=== PATIENT | female | born 1935 | race Caucasian/White ===

== ENCOUNTER 2022-04-28 19:49 | Inpatient (IN) | payer MEDICARE ==
[~2022-04-28] VITALS: Ht 160 cm; Wt 56.7 kg
[2022-04-29] MEDS ORDERED: MAG HYDROX/AL HYDROX/SIMETH 30 ML UDC PO PRN (18:00)
[2022-04-29] MEDS ORDERED: BLOOD SUGAR DIAGNOSTIC 1 EACH STRIP IN ONE (18:00)
[2022-04-29] MEDS ORDERED: ACETAMINOPHEN 325 MG TABLET PO PRN (18:00)
[2022-04-29] MEDS ORDERED: MAGNESIUM HYDROXIDE 30 ML UDC PO PRN (18:00)
[2022-04-29 18:13] VITALS: BP 127/69
[2022-04-29] MEDS ORDERED: PRAM0.253 PO (18:28)
[2022-04-29] MEDS ORDERED: QUET100T PO (18:28)
[2022-04-29] MEDS ORDERED: PANT40TA49 PO (18:28)
[2022-04-29] MEDS ORDERED: METH5TAB4 PO (18:28)
[2022-04-29] MEDS ORDERED: SERT100T PO (18:28)
[2022-04-29] MEDS ORDERED: CARB1TAB21 PO ×2 (18:28)
[2022-04-29] MEDS ORDERED: DONE10TA11 PO (18:28)
[2022-04-29] MEDS ORDERED: CLON1TAB12 PO (18:28)
[2022-04-29] MEDS ORDERED: GABA-532 PO (18:28)
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
--- NOTE | 2022-04-29 19:52 | NUR ---
RN NOTES: REFUSED SKIN ASSESSMENT PT. REFUSED SKIN ASSESSMENT DUE TO UNCOOPERTIVE, AGGRESSIVE, NON REDIRECTABLE, ENCOURAGED X 3 PT. STRONGLY REFUSED, PER PT. STATED MY SKIN IS FINE.
[2022-04-29 20:00] VITALS: BP 133/84
[2022-04-29] MEDS: GABAPENTIN 100 MG CAPSULE PO SCH (21:16)
[2022-04-29] MEDS: DONEPEZIL 5 MG TABLET PO SCH (21:16)
[2022-04-29] MEDS: PRAMIPEXOLE DI-HCL 0.25 MG TABLET PO SCH (21:19)
[2022-04-30 08:00] VITALS: BP 104/71
[2022-04-30] MEDS: PANTOPRAZOLE 40 MG TABLET.DR PO SCH (08:29)
[2022-04-30] MEDS: CARBIDOPA/LEVODOPA 25/100 MG 1 UDTAB PO SCH ×3 (08:30→17:14)
[2022-04-30] MEDS: Z GUARD REMEDY 4 OZ OINT TP SCH (08:30)
[2022-04-30 09:06] LABS: CREATININE 0.8 mg/dL (0.6-1.3)
[2022-04-30 09:08] LABS: ALBUMIN 4.5 g/dL (3.4-5.0); BILIRUBIN,TOTAL 0.7 mg/dL (0.2-1.0); CALCIUM, SERUM 9.7 mg/dL (8.5-10.1); CREATININE 0.8 mg/dL (0.6-1.3); POTASSIUM 4.1 mmol/L (3.5-5.1); TOTAL PROTEIN, SERUM 7.9 g/dL (6.4-8.2)
[2022-04-30 09:10] LABS: CHOLESTEROL 322 mg/dL (<200); HDL CHOLESTEROL 106 mg/dL (40-60); LDL 195 mg/dL (0-99); TRIGLYCERIDES 91 mg/dL (30-150)
[2022-04-30] MEDS: clonazePAM 0.5 MG TABLET PO PRN (15:35)
--- NOTE | 2022-04-30 15:39 | NUR ---
RN-NOTES NOTED PATIENT WITH CONTINUOS TALKING TO SELF, VERY ANXIOUS STATED" I DON'T WANT TO STAY HERE ,I NEED TO GO HOME" REDIRECTED AND REASSURED PATIENT. KLONOPIN 0.25MG P.O GIVEN PRN ORDER. WILL CONT. MONITORING FOR SAFETY AND BEHAVIOR.,
[2022-04-30 16:00] VITALS: BP 160/86
--- NOTE | 2022-04-30 16:40 | NUR ---
RN-NOTES PATIENT STILL IN THE HALLWAY UP IN THE TY CHAIR ,CALM,NO ACUTE DISTRESS NOTED.
[2022-04-30] MEDS: risperiDONE 1 MG TABLET PO SCH (17:14)
--- NOTE | 2022-04-30 18:18 | NUR ---
RN-NOTES PATIENT IN THE HALLWAY UP IN THE TY CHAIR A/O X1-2 GUARDED,NO ACUTE DISTRESS.COMPLIANT WITH MEDICATIONS.NOTED PATIENT WITH EPISODE OF YELLING AND SCREAMING. NEEDS FREQUENT REDIRECTIONS ,PRN MEDICATION GIVEN. NEEDS ASSIST WITH ADL'S. ALL NEEDS ATTENDED AND ANTICIPATED. WILL CONT. MONITORING FOR SAFETY AND BEHAVIOR. WILL ENDORSE TO INCOMING NURSE FOR CONTINUITY OF CARE.
[2022-04-30 20:00] VITALS: BP 154/77
[2022-04-30] MEDS: PRAMIPEXOLE DI-HCL 0.25 MG TABLET PO SCH (22:13)
[2022-04-30] MEDS: DONEPEZIL 5 MG TABLET PO SCH (22:13)
[2022-04-30] MEDS: SIMVASTATIN 10 MG TABLET PO SCH (22:14)
[2022-04-30] MEDS: GABAPENTIN 100 MG CAPSULE PO SCH (22:14)
[2022-04-30] MEDS: DIVALPROEX SODIUM 125 MG CAP.SPRINK PO SCH (22:14)
--- NOTE | 2022-05-01 07:25 | NUR ---
rn note received pt in jenise chair in [facility].pt a/o x1-2. no pain/discomfort noted at this time
[2022-05-01 08:00] VITALS: BP 121/86
[2022-05-01] MEDS: CARBIDOPA/LEVODOPA 25/100 MG 1 UDTAB PO SCH ×3 (09:44→18:01)
[2022-05-01] MEDS: PANTOPRAZOLE 40 MG TABLET.DR PO SCH (09:44)
[2022-05-01] MEDS: DIVALPROEX SODIUM 125 MG CAP.SPRINK PO SCH ×2 (09:44→21:13)
[2022-05-01] MEDS: Z GUARD REMEDY 4 OZ OINT TP SCH (09:45)
[2022-05-01] MEDS: risperiDONE 1 MG TABLET PO SCH ×2 (09:45→17:44)
--- NOTE | 2022-05-01 11:13 | NUR ---
NURSE NOTE: PT AGITATED. CLONAZEPAM PO ADMIN ORDERED. PT JESSICA WELL. WILL CONT TO MONITOR.
[2022-05-01] MEDS: clonazePAM 0.5 MG TABLET PO PRN ×2 (11:16→22:25)
--- NOTE | 2022-05-01 12:00 | NUR ---
NURSE NOTE: TECH UP TO DO DOPPLER BILAT LEG, ASKED PT IF SHE COULD STAY STILL. PT CONFUSED AND ANSWERED NO. TECH LEFT AND DC'D ORDER.
--- NOTE | 2022-05-01 12:13 | NUR ---
NURSE NOTE: PT CALMER AT THIS TIME BUT OCC STILL YELLING OUT. CLONAZEPAM EFFECTIVE AT THIS TIME. WILL CONT TO MONITOR.
[2022-05-01 16:00] VITALS: BP 131/88
--- NOTE | 2022-05-01 20:00 | NUR ---
RN-NOTES PATIENT IN THE HALLWAY UP IN THE TY CHAIR A/O X1-2 GUARDED,NO ACUTE DISTRESS. NOTED PATIENT WITH EPISODES OF TALKING WITH PEOPLE WHO ARE NOT THERE AND TO SELF. NEEDS FREQUENT REDIRECTIONS ,NEEDS ASSIST WITH ADL'S. ALL NEEDS ATTENDED AND ANTICIPATED. WILL CONT. MONITORING FOR SAFETY AND BEHAVIOR. PO FLUIDS OFFERED AND TAKEN WELL.
[2022-05-01 20:33] VITALS: BP 161/71
[2022-05-01] MEDS: DONEPEZIL 5 MG TABLET PO SCH (21:13)
[2022-05-01] MEDS: GABAPENTIN 100 MG CAPSULE PO SCH (21:14)
[2022-05-01] MEDS: SIMVASTATIN 10 MG TABLET PO SCH (21:14)
[2022-05-01] MEDS: PRAMIPEXOLE DI-HCL 0.25 MG TABLET PO SCH (21:17)
--- NOTE | 2022-05-01 22:25 | NUR ---
RN-NOTES PATIENT IN THE HALLWAY UP IN THE TY CHAIR A/O X1-2 GUARDED . CONTINUE TO WITH EPISODES OF TALKING WITH PEOPLE WHO ARE NOT THERE. CLONAZEPAM GIVEN PO FOR ANXIETY PRN MEDICATION. PO FLUIDS GIVEN. OFFERED SNACKS BUT DECLINED. NEEDS ASSIST WITH ADL'S. CONTINUITY OF CARE. DENIES HI, SI.
[2022-05-01] MEDS: TEMAZEPAM 7.5 MG CAPSULE PO PRN (23:33)
--- NOTE | 2022-05-01 23:33 | NUR ---
ALERT TO NAME, HAS EPISODES OF INABILITY TO GO TO SLEEP, CONTINUE TO TALK TO SELF AND PEOPLE WHO ARE NOT THERE. DENIES SI, HI, PAIN OR DISCOMFORT. PO FLUID GIVEN AND TAKEN ONLY IN SMALL AMOUNTS. DECLINED SNACKS. RESTORIL GIVEN ORDERED. CONTINUE TO BE UP IN TY-CHAIR. KEPT CLEAN AND COMFORTABLE. DENIES PAIN OR DISCOMFORT.
--- NOTE | 2022-05-02 06:34 | NUR ---
AT THIS TIME IS ASLEEP IN BED, UNLABORED BREATHING. BILATERAL HALF SIDE RAILS UP X2. BED IN LOW POSITION, LOCKED, EXIT ALARM ON. WENT TO SLEEP AT 4AM. COMPLIANT WITH ALL MEDICATIONS. KEPT CLEAN AND DRY. PO FLUIDS SNACKS GIVEN WHILE AWAKE. SAFEY AND FALL PRECAUTIONS MAINTAINED AT ALL TIMES.
[2022-05-02 08:00] VITALS: BP 132/64
--- NOTE | 2022-05-02 08:55 | NUR ---
Treatment Plan: Pt unable to sign treatment plan. Pt was very confused.
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
--- NOTE | 2022-05-02 08:55 | NUR ---
ADRIENNE Initial Discharge Plan: Per records, pt currently resides at home located at [address] [place] [address]; ([phone]). ADRIENNE will contact pt's Franki ([phone], ) to gather collateral. ADRIENNE will work with the MD, family, and treatment team to help coordinate appropriate treatment.
[2022-05-02] MEDS: clonazePAM 0.5 MG TABLET PO PRN (09:19)
[2022-05-02] MEDS: CARBIDOPA/LEVODOPA 25/100 MG 1 UDTAB PO SCH ×4 (09:19→17:42)
[2022-05-02] MEDS: risperiDONE 1 MG TABLET PO SCH ×2 (09:20→17:00)
[2022-05-02] MEDS: DIVALPROEX SODIUM 125 MG CAP.SPRINK PO SCH ×2 (09:20→21:00)
[2022-05-02] MEDS: PANTOPRAZOLE 40 MG TABLET.DR PO SCH (09:20)
[2022-05-02] MEDS: Z GUARD REMEDY 4 OZ OINT TP SCH (09:48)
[2022-05-02] MEDS ORDERED: LORAZEPAM INJ 2 MG/ML VIAL IM STA (10:26)
[2022-05-02] MEDS ORDERED: OLANZAPINE 10 MG VIAL IM ONE (10:30)
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
--- NOTE | 2022-05-02 11:36 | NUR ---
ADRIENNE Family Contact: SW spoke with patient's Franki ([phone]) and discussed treatment/discharge plan. Franki stated that the plan for pt is to go to [facility] ([phone]) and he stated they have a SNF and memory care unit. He reported he would want her to go to the SNF and to speak to Farida Sharif ([phone]) to see what the next step is. He stated that he is the DPOA and he had sent the documents to the unit. had sent the documents and is the DPOA. He requested for the psychiatrist to speak to her outpatient psychiatrist Dr. Dueñas ([phone]) and this process description writer notified Dr. Burrows.
--- NOTE | 2022-05-02 11:39 | NUR ---
Facility Contact: SW contacted Farida Sharif from [facility] ([phone]) and left a voicemail to discuss discharge planning per pt's request.
[2022-05-02 16:00] VITALS: BP 134/78
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
--- NOTE | 2022-05-02 19:30 | NUR ---
PSYCH MEDS PLACED ON HOLD ORDERED BY DR HARTMANN.
--- NOTE | 2022-05-02 19:30 | NUR ---
PATIENT RECEIVED IN THE ACTIVITY ROOM SITTING IN THE TY CHAIR A/O X1-2 GUARDED, CONFUSED, NO ACUTE DISTRESS. NEEDS FREQUENT REDIRECTIONS, UNSTEADY GAIT. SAFETY MEASURES IN PLACE. WILL CONTINUE MONITORING FOR SAFETY AND WILL CONTINUE PLAN OF CARE.
[2022-05-02 19:52] VITALS: BP 119/83
[2022-05-02] MEDS: DONEPEZIL 5 MG TABLET PO SCH (21:18)
[2022-05-02] MEDS: PRAMIPEXOLE DI-HCL 0.25 MG TABLET PO SCH (21:31)
[2022-05-02] MEDS: GABAPENTIN 100 MG CAPSULE PO SCH (21:31)
[2022-05-02] MEDS: SIMVASTATIN 10 MG TABLET PO SCH (21:31)
--- NOTE | 2022-05-03 06:05 | NUR ---
PATIENT AWAKE. A/O X1-2 GUARDED, CONFUSED, NOTED PATIENT WITH EPISODE OF YELLING AND SCREAMING. NEEDS FREQUENT REDIRECTIONS. UNSTEADY GAIT. DUE MEDS GIVEN AND HELD ORDERED. NEEDS ATTENDED. SAFETY MEASURES MAINTAINED. WILL ENDORSE TO NEXT NURSE ON DUTY FOR CONTINUITY OF CARE.
[2022-05-03 08:00] VITALS: BP 136/72
[2022-05-03] MEDS: risperiDONE 1 MG TABLET PO SCH ×3 (08:10→17:14)
[2022-05-03] MEDS: PANTOPRAZOLE 40 MG TABLET.DR PO SCH ×2 (08:10→09:00)
[2022-05-03] MEDS: DIVALPROEX SODIUM 125 MG CAP.SPRINK PO SCH ×3 (08:11→20:46)
[2022-05-03] MEDS: CARBIDOPA/LEVODOPA 25/100 MG 1 UDTAB PO SCH ×5 (08:12→17:16)
[2022-05-03] MEDS: Z GUARD REMEDY 4 OZ OINT TP SCH (08:14)
[2022-05-03] MEDS: Z GUARD REMEDY 4 OZ OINT TP PRN (08:14)
--- NOTE | 2022-05-03 09:15 | NUR ---
Court Notification: SW left patient's Franki ([phone]) voicemail of pt's 4820 hearing.
--- NOTE | 2022-05-03 11:56 | NUR ---
Facility Contact: ADRIENNE contacted Farida Sharif from [facility] ([phone]) and left another voicemail to contact this selling underwriter.
[2022-05-03] MEDS ORDERED: NEPRO VAN 237 ML CAN PO PRN (12:00)
--- NOTE | 2022-05-03 12:27 | NUR ---
Court Hearing: Patient's court hearing for 2130 was today and it was upheld for GD.
[2022-05-03] MEDS: ENSURE ENLIVE 237 ML LIQUID (VANILLA) PO SCH ×2 (13:57→17:11)
[2022-05-03] MEDS: clonazePAM 0.5 MG TABLET PO PRN (15:21)
[2022-05-03 16:12] VITALS: BP 166/79
[2022-05-03 20:06] VITALS: BP 151/79
[2022-05-03] MEDS: PRAMIPEXOLE DI-HCL 0.25 MG TABLET PO SCH (21:09)
[2022-05-03] MEDS: GABAPENTIN 100 MG CAPSULE PO SCH (21:10)
[2022-05-03] MEDS: DONEPEZIL 5 MG TABLET PO SCH (21:10)
[2022-05-03] MEDS: SIMVASTATIN 10 MG TABLET PO SCH (21:11)
[2022-05-04 08:00] VITALS: BP 134/58
[2022-05-04] MEDS: ENSURE ENLIVE 237 ML LIQUID (VANILLA) PO SCH ×3 (08:53→17:18)
[2022-05-04] MEDS: CARBIDOPA/LEVODOPA 25/100 MG 1 UDTAB PO SCH ×3 (08:53→17:18)
[2022-05-04] MEDS: DIVALPROEX SODIUM 125 MG CAP.SPRINK PO SCH ×2 (08:53→21:13)
[2022-05-04] MEDS: PANTOPRAZOLE 40 MG TABLET.DR PO SCH (08:53)
[2022-05-04] MEDS: Z GUARD REMEDY 4 OZ OINT TP SCH (08:54)
[2022-05-04] MEDS: SERTRALINE HCL 50 MG TABLET PO SCH ×2 (09:12→17:19)
[2022-05-04] MEDS: QUETIAPINE FUMARATE 100 MG TABLET PO SCH ×3 (09:12→17:18)
--- NOTE | 2022-05-04 11:16 | NUR ---
WOUND CARE CONSULT: NO NEED FOR WOUND CONSULT PER RN DUE TO PT SKIN INTACT AND CURRENT LIVAN SCORE 2O. WILL SEE PRN.
--- NOTE | 2022-05-04 11:39 | NUR ---
ADRIENNE Family Contact: ADRIENNE spoke with pt's Franki ([phone]) and discussed for patient's placement. ADRIENNE stated that this creative services writer has been contacting [facility] and leaving Farida Sharif DON multiple voicemails ([phone]) but has not returned the voicemail. stated possibly because of . He stated that during the Holiday he will be touring other facilities and will contact this creative services writer 05/09 to follow up. He stated his main choice would be [facility].
--- NOTE | 2022-05-04 15:40 | NUR ---
Facility Contact: ADRIENNE contacted Farida Sharif from [facility] ([phone]) and discussed placement. She stated that they are a SNF and that this rewriter will send clinicals on 05/09/2022 for review ([phone]).
--- NOTE | 2022-05-04 15:42 | NUR ---
ADRIENNE Family Contact: ADRIENNE spoke with pt's Franki ([phone]) and notified that Farida from [facility] contacted this sheet writer and will follow-up with her on Monday to send clinicals.
[2022-05-04 16:00] VITALS: BP 121/54
--- NOTE | 2022-05-04 17:00 | NUR ---
NURSE NOTE: DR JOHNSON NOTIFIED OF DOPPLER RESULTS. NO NEW ORDERS AT THIS TIME. WILL CONT TO MONITOR.
[2022-05-04 20:08] VITALS: BP 109/91
[2022-05-04] MEDS: DONEPEZIL 5 MG TABLET PO SCH (21:13)
[2022-05-04] MEDS: GABAPENTIN 100 MG CAPSULE PO SCH (21:13)
[2022-05-04] MEDS: SIMVASTATIN 10 MG TABLET PO SCH (21:13)
[2022-05-04] MEDS: PRAMIPEXOLE DI-HCL 0.25 MG TABLET PO SCH (21:14)
[2022-05-05] MEDS: clonazePAM 0.5 MG TABLET PO PRN ×2 (00:08→14:55)
--- NOTE | 2022-05-05 00:10 | NUR ---
RN NOTES: ANXIETY PATIENT NOTED ANXIOUS ,EASILY AGITATED,UNCOOPERTIVE AT THIS TIME, NEEDY, PARANOID,HYPERVERVAL, PARANOID, STATRED YELLING SCREAMING NEEDS FREQUENT REDIRECTION PRN KLONOPIN 0.25 MG PO GIVEN FOR PT. BEHAVIOR , WILL CONTINUE TO MONITOR.
[2022-05-05 08:00] VITALS: BP 151/70
[2022-05-05] MEDS: CARBIDOPA/LEVODOPA 25/100 MG 1 UDTAB PO SCH ×3 (08:27→17:03)
[2022-05-05] MEDS: DIVALPROEX SODIUM 125 MG CAP.SPRINK PO SCH ×2 (08:27→21:06)
[2022-05-05] MEDS: SERTRALINE HCL 50 MG TABLET PO SCH ×2 (08:27→17:04)
[2022-05-05] MEDS: QUETIAPINE FUMARATE 100 MG TABLET PO SCH ×3 (08:27→17:03)
[2022-05-05] MEDS: PANTOPRAZOLE 40 MG TABLET.DR PO SCH (08:27)
[2022-05-05] MEDS: ENSURE ENLIVE 237 ML LIQUID (VANILLA) PO SCH ×3 (08:38→17:04)
[2022-05-05] MEDS: Z GUARD REMEDY 4 OZ OINT TP SCH (08:38)
--- NOTE | 2022-05-05 14:45 | NUR ---
RN- NOTES PATIENT IN THE DAY ROOM UP IN THE TY CHAIR NOTED PATIENT VERY ANXIOUS,YELLING AND SCREAMING,REDIRECTED PATIENT. KLONOPIN 0.25MG P.O GIVEN PRN ORDER. WILL CONT. MONITORING FOR SAFETY AND BEHAVIOR.
--- NOTE | 2022-05-05 15:55 | NUR ---
RN-NOTES PATIENT STILL IN THE DAY ROOM,AWAKE,A/O X1 CALM NO ACUTE DISTRESS NOTED.
[2022-05-05 16:00] VITALS: BP 100/53
--- NOTE | 2022-05-05 17:18 | NUR ---
RN-NOTES PATIENT VISIBLE IN THE UNIT A/O X1-2 GUARDED,NO ACUTE DISTRESS.COMPLIANT WITH MEDICATIONS.NOTED PATIENT WITH EPISODE OF YELLING AND SCREAMING. NEEDS FREQUENT REDIRECTIONS ,PRN MEDICATION GIVEN. NEEDS ASSIST WITH ADL'S. ALL NEEDS ATTENDED AND ANTICIPATED. WILL CONT. MONITORING FOR SAFETY AND BEHAVIOR. WILL ENDORSE TO INCOMING NURSE FOR CONTINUITY OF CARE.
[2022-05-05] MEDS: Z GUARD REMEDY 4 OZ OINT TP PRN (19:30)
[2022-05-05 20:00] VITALS: BP 131/67
--- NOTE | 2022-05-05 20:16 | NUR ---
RN NOTES: RECEIVED SITTING UP IN TY CHAIR, NO S/SX OF ACUTE DISTRESS NOTED. PATIENT ANXIOUS ,EASILY AGITATED,UNCOOPERTIVE, NEEDY, PARANOID,HYPERVERVAL, PARANOID,YELLING SCREAMING NEEDS FREQUENT REDIRECTION, DENIES SI/HI AT THIS TIME.ENCOURAGE TO VERBALIZED ANY FEELING OR CONCERN,REFUSED TO GO BACK TO BED , HIGH FALL RISKS, NEEDS FREQUENTLY REDIRECTIONS AND ORIENTATIONS ,SAFETY MEASURES IN PLACE. WILL CONTINUE TO MONITOR .Q15MIN ROUNDS FOR SAFETY AND BEHAVIOR.
[2022-05-05] MEDS: PRAMIPEXOLE DI-HCL 0.25 MG TABLET PO SCH (21:07)
[2022-05-05] MEDS: DONEPEZIL 5 MG TABLET PO SCH (21:07)
[2022-05-05] MEDS: GABAPENTIN 100 MG CAPSULE PO SCH (21:07)
[2022-05-05] MEDS: SIMVASTATIN 10 MG TABLET PO SCH (21:07)
[2022-05-06 08:00] VITALS: BP 118/64
[2022-05-06] MEDS: PANTOPRAZOLE 40 MG TABLET.DR PO SCH (08:33)
[2022-05-06] MEDS: DIVALPROEX SODIUM 125 MG CAP.SPRINK PO SCH ×2 (08:33→21:11)
[2022-05-06] MEDS: QUETIAPINE FUMARATE 100 MG TABLET PO SCH ×3 (08:33→16:54)
[2022-05-06] MEDS: CARBIDOPA/LEVODOPA 25/100 MG 1 UDTAB PO SCH ×3 (08:35→18:15)
[2022-05-06] MEDS: SERTRALINE HCL 50 MG TABLET PO SCH ×2 (08:36→16:54)
[2022-05-06] MEDS: Z GUARD REMEDY 4 OZ OINT TP SCH (08:37)
[2022-05-06] MEDS: ENSURE ENLIVE 237 ML LIQUID (VANILLA) PO SCH ×3 (08:37→16:54)
[2022-05-06 16:00] VITALS: BP 124/63
--- NOTE | 2022-05-06 17:48 | NUR ---
RN-NOTES PATIENT VISIBLE IN THE UNIT A/O X1-2 GUARDED,NO ACUTE DISTRESS.COMPLIANT WITH MEDICATIONS. CALM AND COOPERATIVE WITH STAFF THIS SHIFT. NEEDS ASSIST WITH ADL'S. ALL NEEDS ATTENDED AND ANTICIPATED. WILL CONT. MONITORING FOR SAFETY AND BEHAVIOR. WILL ENDORSE TO INCOMING NURSE FOR CONTINUITY OF CARE.
--- NOTE | 2022-05-06 18:46 | NUR ---
RN-NOTES PATIENT C/O CONSTIPATION. MOM 30ML GIVEN PRN ORDER. WILL ENDORSE TO INCOMING NURSE TO CONTINUE MONITORING FOR EFFECTIVENESS.
--- NOTE | 2022-05-06 20:08 | NUR ---
RN NOTES: PATIENT AWAKE, ALERT.SITTING UP IN GERICAHIR, BREATHING UNLABORED NOT IN ANY FORM OF DISTRESS, PATIENT REMAINS CONFUSED,FORGETFUL. TALKING TO SELF , DISORGNIZED COOPERATIVE TO CARE AT HIS TIME, NEEDS FREQUENTLY REDIRECTIONS AND ORIENTIONS. ENCOURAGED TO VERBALIZED ANY FEELING OR CONCERN SAFETY PRECAUTIONS MAINTAINED. WILL CONTINUE TO MONITOR Q15MIN ROUNDS FOR SAFETY AND BEHAVIOR.
[2022-05-06 20:20] VITALS: BP_SYST 103; BP_SYST 109; BP_DIAS 50; BP_DIAS 62
[2022-05-06] MEDS: SIMVASTATIN 10 MG TABLET PO SCH (21:11)
[2022-05-06] MEDS: GABAPENTIN 100 MG CAPSULE PO SCH (21:11)
[2022-05-06] MEDS: DONEPEZIL 5 MG TABLET PO SCH (21:11)
[2022-05-06] MEDS ORDERED: PRAMIPEXOLE DI-HCL 0.25 MG TABLET ONE (22:12)
[2022-05-06] MEDS: PRAMIPEXOLE DI-HCL 0.25 MG TABLET PO SCH (22:38)
[2022-05-07 08:00] VITALS: BP 134/66
[2022-05-07] MEDS: Z GUARD REMEDY 4 OZ OINT TP SCH (08:35)
[2022-05-07] MEDS: CARBIDOPA/LEVODOPA 25/100 MG 1 UDTAB PO SCH ×3 (08:38→17:03)
[2022-05-07] MEDS: QUETIAPINE FUMARATE 100 MG TABLET PO SCH ×3 (08:39→17:03)
[2022-05-07] MEDS: PANTOPRAZOLE 40 MG TABLET.DR PO SCH (08:39)
[2022-05-07] MEDS: ENSURE ENLIVE 237 ML LIQUID (VANILLA) PO SCH ×3 (08:39→17:01)
[2022-05-07] MEDS: DIVALPROEX SODIUM 125 MG CAP.SPRINK PO SCH ×2 (08:39→21:01)
[2022-05-07] MEDS: SERTRALINE HCL 50 MG TABLET PO SCH ×2 (08:39→17:03)
[2022-05-07 16:00] VITALS: BP 127/66
--- NOTE | 2022-05-07 20:12 | NUR ---
Received patient in bed awake. Pt appears calm, confused, guarded. Denies Si/Hi. No episode of agitation. Med compliant. Patient able to interact to nursing staff. Will continue to monitor.
[2022-05-07 20:14] VITALS: BP 141/68
[2022-05-07] MEDS: DONEPEZIL 5 MG TABLET PO SCH (21:01)
[2022-05-07] MEDS: PRAMIPEXOLE DI-HCL 0.25 MG TABLET PO SCH (21:03)
[2022-05-07] MEDS: SIMVASTATIN 10 MG TABLET PO SCH (21:04)
[2022-05-07] MEDS: GABAPENTIN 100 MG CAPSULE PO SCH (21:04)
[2022-05-08 08:00] VITALS: BP 140/72
[2022-05-08] MEDS: ENSURE ENLIVE 237 ML LIQUID (VANILLA) PO SCH ×3 (08:30→16:15)
[2022-05-08] MEDS: SERTRALINE HCL 50 MG TABLET PO SCH ×2 (08:32→16:17)
[2022-05-08] MEDS: PANTOPRAZOLE 40 MG TABLET.DR PO SCH (08:32)
[2022-05-08] MEDS: DIVALPROEX SODIUM 125 MG CAP.SPRINK PO SCH ×2 (08:32→21:43)
[2022-05-08] MEDS: CARBIDOPA/LEVODOPA 25/100 MG 1 UDTAB PO SCH ×3 (08:32→16:17)
[2022-05-08] MEDS: QUETIAPINE FUMARATE 100 MG TABLET PO SCH ×3 (08:33→16:17)
[2022-05-08] MEDS: Z GUARD REMEDY 4 OZ OINT TP SCH (08:33)
[2022-05-08 16:00] VITALS: BP 135/88
[2022-05-08 20:35] VITALS: BP 121/64
[2022-05-08] MEDS: DONEPEZIL 5 MG TABLET PO SCH (21:43)
[2022-05-08] MEDS: PRAMIPEXOLE DI-HCL 0.25 MG TABLET PO SCH (21:43)
[2022-05-08] MEDS: SIMVASTATIN 10 MG TABLET PO SCH (21:44)
[2022-05-08] MEDS: GABAPENTIN 100 MG CAPSULE PO SCH (21:44)
[2022-05-09 08:00] VITALS: BP_SYST 144; BP_SYST 148; BP_DIAS 72; BP_DIAS 83
--- NOTE | 2022-05-09 08:02 | NUR ---
ADRIENNE SNF REFERRAL: ADRIENNE contacted Farida Sharif from [facility] ([phone]) ([phone]) and faxed patient's clinicals. SW sent H & P, progress notes, and medication list.
[2022-05-09] MEDS: DIVALPROEX SODIUM 125 MG CAP.SPRINK PO SCH ×2 (08:59→20:46)
[2022-05-09] MEDS: QUETIAPINE FUMARATE 100 MG TABLET PO SCH ×3 (08:59→16:24)
[2022-05-09] MEDS: Z GUARD REMEDY 4 OZ OINT TP SCH (09:00)
[2022-05-09] MEDS: SERTRALINE HCL 50 MG TABLET PO SCH ×2 (09:00→16:24)
[2022-05-09] MEDS: PANTOPRAZOLE 40 MG TABLET.DR PO SCH (09:00)
[2022-05-09] MEDS: CARBIDOPA/LEVODOPA 25/100 MG 1 UDTAB PO SCH ×3 (09:00→17:03)
[2022-05-09] MEDS: ENSURE ENLIVE 237 ML LIQUID (VANILLA) PO SCH ×3 (09:01→16:23)
[2022-05-09] MEDS: clonazePAM 0.5 MG TABLET PO PRN ×3 (12:09→20:46)
--- NOTE | 2022-05-09 12:09 | NUR ---
NURSE NOTE: PT ANXIOUS AND AGITATED. YELLING AT STAFF MEMBERS. CLONAZEPAM ADMINISTERED ORDERED. PT JESSICA WELL. WILL CONT TO MONITOR.
--- NOTE | 2022-05-09 13:00 | NUR ---
NURSE NOTE: PT CALM AT THIS TIME. CLONAZEPAM EFFECTIVE. WILL CONT TO MONITOR.
--- NOTE | 2022-05-09 13:49 | NUR ---
SW SNF Contact: ADRIENNE contacted Farida Sharif from [facility] ([phone]) ([phone]) who stated pt is accepted.
--- NOTE | 2022-05-09 13:50 | NUR ---
ADRIENNE Family Contact: SW spoke with pt's Franki ([phone]) and discussed pt's discharge. He stated that he would want pt back home and he is trying to figure out transportation for pt.
--- NOTE | 2022-05-09 15:13 | NUR ---
SW Family Contact: SW spoke with pt's Franki ([phone]) who stated that he changed his mind and wants pt to go to [facility] ([phone]) ([phone]).
--- NOTE | 2022-05-09 15:16 | NUR ---
Facility Contact: ADRIENNE spoke with Teresa from [facility] ([phone]) ([phone]) and sent referrals for placement in the assisted living. She will review clinicals. ADRIENNE sent H & P, progress notes, and medication list.
--- NOTE | 2022-05-09 16:25 | NUR ---
NURSE NOTE: PT AGITATED AND ANXIOUS. YELLING OUT LOUD. CLONAZEPAM PO ADMINISTERED ORDERED. PT JESSICA WELL. WILL CONT TO MONITOR.
--- NOTE | 2022-05-09 17:20 | NUR ---
NURSE NOTE: PT CALM AT THIS TIME. CLONAZEPAM EFFECTIVE AT THIS TIME. WILL CONT TO MONITOR.
--- NOTE | 2022-05-09 19:25 | NUR ---
RN OPEN NOTE: PT AWAKE,IN GERICHAIR, IN HALLWAY/ BREATHING EVEN AND UNLABORED. PT CONFUSED, FORGETFUL, AND DISORGANIZED. COOPERATIVE TO CARE. PT IN STABLE COND AT THIS TIME, WILL CONTINUE TO DENIES SI, HI. WILL MONITOR TO FOR SAFETY AND BEHAVIOR.
[2022-05-09] MEDS: DONEPEZIL 5 MG TABLET PO SCH (21:01)
[2022-05-09] MEDS: GABAPENTIN 100 MG CAPSULE PO SCH (21:01)
[2022-05-09] MEDS: SIMVASTATIN 10 MG TABLET PO SCH (21:01)
[2022-05-09] MEDS: PRAMIPEXOLE DI-HCL 0.25 MG TABLET PO SCH (21:01)
[2022-05-09 21:16] VITALS: BP 122/75
[2022-05-09] MEDS: TEMAZEPAM 7.5 MG CAPSULE PO PRN (22:25)
--- NOTE | 2022-05-10 06:10 | NUR ---
CLOSING NOTE: PT ASLEEP, IN BED, BREATHING EVEN AND UNLABORED. PT IN STABLE CONDITION AT THIS TIME, WILL CONTINUE TO MONITOR FOR SAFETY AND BEHAVIOR.
--- NOTE | 2022-05-10 07:46 | NUR ---
GPS RN NOTE PATIENT , IN BED, BREATHING EVEN AND UNLABORED. PT IN STABLE CONDITION AT THIS TIME, WILL CONTINUE TO MONITOR FOR SAFETY AND BEHAVIOR.HAVING BREAKFAST
[2022-05-10 08:00] VITALS: BP 123/51
[2022-05-10] MEDS: CARBIDOPA/LEVODOPA 25/100 MG 1 UDTAB PO SCH ×3 (08:18→17:07)
[2022-05-10] MEDS: SERTRALINE HCL 50 MG TABLET PO SCH ×2 (08:18→16:05)
[2022-05-10] MEDS: QUETIAPINE FUMARATE 100 MG TABLET PO SCH ×3 (08:18→16:05)
[2022-05-10] MEDS: DIVALPROEX SODIUM 125 MG CAP.SPRINK PO SCH ×2 (08:18→20:59)
[2022-05-10] MEDS: PANTOPRAZOLE 40 MG TABLET.DR PO SCH (08:18)
[2022-05-10] MEDS: Z GUARD REMEDY 4 OZ OINT TP SCH (08:19)
[2022-05-10] MEDS: ENSURE ENLIVE 237 ML LIQUID (VANILLA) PO SCH ×3 (08:37→16:36)
--- NOTE | 2022-05-10 10:58 | NUR ---
GPS RN NOTE ASSISTED TO BR ,KEEP CLEAN DRY
--- NOTE | 2022-05-10 11:07 | NUR ---
ADRINENE Family Contact: SW spoke with pt's Franki ([phone]) and left a detailed voicemail that this group underwriter sent clinicals to Teresa from [place] and waiting for her answer.
--- NOTE | 2022-05-10 12:58 | NUR ---
[facility] Contact: ADRIENNE spoke with Karthikeyan to coordinate transportation to [facility] for 05/11 at 10AM. Payment was $1,196 and Franki will make payment.
--- NOTE | 2022-05-10 12:58 | NUR ---
Facility Contact: ADRIENNE contacted Farida Sharif from [facility] ([phone]) who stated pt is welcomed tomorrow 05/11/2022.
[2022-05-10] MEDS: clonazePAM 0.5 MG TABLET PO PRN (12:59)
--- NOTE | 2022-05-10 13:01 | NUR ---
ADRIENNE Family Contact: ADRIENNE spoke with pt's Franki ([phone]) who stated he would want pt to [facility]. ADRIENNE notified that transportation is set for 05/11 and cost is $1,129. ADRIENNE gave [employer] ([phone]) information and to speak to confirm with Karthikeyan they payment.
--- NOTE | 2022-05-10 13:04 | NUR ---
gps rn note become agitated by pushing food tray on floor, Klonopin prn given as ordered, will cont to monitor closely
[2022-05-10 16:00] VITALS: BP 109/55
--- NOTE | 2022-05-10 16:30 | NUR ---
GPS RN NOTE DIAPER CHANGED, KEEP CLEAN DRY,ALL NEEDS ATTENDED, NOT IN DISTRESS
--- NOTE | 2022-05-10 17:16 | NUR ---
GPS RN NOTE PATIENT IN DINNING ROOM ,COOPERATIVE AND PLEASANT , HAVING DINNER SELF , ALL NEEDS ATTENDED
--- NOTE | 2022-05-10 18:48 | NUR ---
gps rn note patent in dinning room ,sitting comfortably on dion chair watching tv, cooperating , will cont to monitor
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
[2022-05-10 20:35] VITALS: BP 125/80
[2022-05-10] MEDS: DONEPEZIL 5 MG TABLET PO SCH (21:35)
[2022-05-10] MEDS: PRAMIPEXOLE DI-HCL 0.25 MG TABLET PO SCH (21:35)
[2022-05-10] MEDS: SIMVASTATIN 10 MG TABLET PO SCH (21:36)
[2022-05-10] MEDS: GABAPENTIN 100 MG CAPSULE PO SCH (21:36)
[2022-05-10] MEDS: TEMAZEPAM 7.5 MG CAPSULE PO PRN (22:29)
--- NOTE | 2022-05-10 22:36 | NUR ---
noc rn opening patient still hyperverbal at this time. not sleeping. given restoril 7.5 mg PRN as ordered.
[2022-05-11 08:00] VITALS: BP 145/63
[2022-05-11] MEDS: CARBIDOPA/LEVODOPA 25/100 MG 1 UDTAB PO SCH (08:15)
[2022-05-11] MEDS: ENSURE ENLIVE 237 ML LIQUID (VANILLA) PO SCH (08:16)
[2022-05-11] MEDS: SERTRALINE HCL 50 MG TABLET PO SCH (08:16)
[2022-05-11] MEDS: DIVALPROEX SODIUM 125 MG CAP.SPRINK PO SCH (08:16)
[2022-05-11] MEDS: QUETIAPINE FUMARATE 100 MG TABLET PO SCH (08:16)
[2022-05-11] MEDS: Z GUARD REMEDY 4 OZ OINT TP SCH (08:16)
[2022-05-11] MEDS: PANTOPRAZOLE 40 MG TABLET.DR PO SCH (08:16)
--- NOTE | 2022-05-11 08:24 | NUR ---
RN-CO: DR HARTMANN SEEN AND EXAMINED THE PATIENT AND ORDERED TO DISCONTINUE HOLD AND DISCHARGE PT TO SNF. DR DOMINIQUE SEEN THE HER WELL AND MEDICALLY CLEARED HER FOR DISCHARGE. PT CONTINUED TO DENY SUICIDAL AND HOMICIDAL IDEATION. FURTHERMORE , SHE DENIES AH/VH.
--- NOTE | 2022-05-11 08:36 | NUR ---
SW Discharge Note: Patient will be discharged to [facility] [address], [place] [address]; . [employer] transportation ([phone]) will oyster picker pt at 10AM. Farida SARAI from [facility] ([phone]) who stated pt is accepted and Bárbara will be covering for DON. Patients Franki ([phone]) is aware and agreeable. Pt is alert and oriented x1. Pt denies suicidal or homicidal ideation. Pt denies visual/auditory hallucinations. Pt will follow up with (Lesson Instructor) Dr. Colbert at the facility [address], [place] [address]; who will monitor and provide pts psychotropic medications. Pt presents with euthymic mood and congruent affect.
--- NOTE | 2022-05-11 10:25 | NUR ---
NURSE NOTE: 87 YEAR OLD FEMALE DISCHARGED TO THE [facility] IN STABLE COND. BOTH DR HARTMANN (PSYCH) AND DR DOMINIQUE (MED) CLEARED PT FOR DISCHARGE. DR HARTMANN DISCONTINUED HOLD AT THIS TIME. PT COMPLIANT WITH MEDS, COOPERATIVE WITH TREATMENT PLANS. PT DENIES SI/HI AND INSTRUCTED TO SEEK HELP IF DEVELOPING SI/HI. BEHAVIOR IMPROVED, PSYCHIATRIC PLANS MET, MEDICAL TX PLANS DEFERRED FOR CONTINUAL MONITORING. EDUCATED PT ABOUT AFTER CARE PLAN AND COPY PROVIDED. RETURNED PERSONAL BELONGINGS TO PT. MEDICATION RECONCILED WITH DR HARTMANN (PSYCH) AND DR DOMINIQUE (MED). REPORT GIVEN TO ROSALINDA ANNE AT THE [facility] FOR CONTINUITY OF CARE. PT VERBALIZED UNDERSTANDING, BUT REFUSED TO SIGN DISCHARGE PAPERWORK. REFUSED PICTURES AT THIS TIME.
== END 2022-05-11 10:25 | DRG 885 ==
LOC: GPS 04-29 17:23
PROVIDERS: ADMIT Psychiatry & Neurology Psychiatry; ATTEND Internal Medicine
DX: F29 Unspecified psychosis not due to a substance or known physiological condition (principal); F02.818 Dementia in other diseases classified elsewhere, unspecified severity, with other behavioral disturbance; F41.9 Anxiety disorder, unspecified; G20 Parkinson's disease; Z79.899 Other long term (current) drug therapy; F25.9 Schizoaffective disorder, unspecified; I10 Essential (primary) hypertension; E78.5 Hyperlipidemia, unspecified; Z98.890 Other specified postprocedural states; L53.9 Erythematous condition, unspecified
CPT/HCPCS: 36415; 80053-TC; 80061-TC; 80164-TC; 82565-TC; 82962-TC; 84443-TC; 87081-TC; 97110-TC; 97112-TC; 97116-TC; 97530-TC; J2060; J3490